=== PATIENT | female | born 2000 | race Caucasian/White ===

== ENCOUNTER → 2024-06-25 07:51 | Outpatient (REF) | payer OTHER, SELFPAY | LOC: HWRAD 07:51 | PROVIDERS: ATTENDING PHYSICIAN Physician Assistant Medical | DX: E04.9 Nontoxic goiter, unspecified (principal) | CPT/HCPCS: 76536 ==

== ENCOUNTER → 2024-08-13 10:10 | Outpatient (REF) | payer OTHER, SELFPAY | LOC: HWRAD 10:10 | PROVIDERS: ATTENDING PHYSICIAN Physician Assistant Medical | DX: M54.50 Low back pain, unspecified (principal) | CPT/HCPCS: 72110 ==